=== PATIENT | male | born 1965 | race Caucasian/White ===

== ENCOUNTER 2017-01-18 17:07 | Emergency (ER) | payer BC ==
[~2017-01-18] VITALS: Ht 172.7 cm; Wt 70.3 kg
--- NOTE | ~2017-01-18 | CT4 ---
[facility] A Service of [facility] RADIOLOGY TEXT RESULTS PATIENT: VY CORDON LOCATION: [facility] : 63 UNIT #: [id number] AGE: [address]: Rojelio Gaspar DO SEX: M ORDER DR: [id number] [facility]. [place], [place] [address] [id number] E MR#: [id number] Acc #: [id number] NAME: VY CORDON : 1965 SEX: M STUDY DATE/TIME: 01/18/2017 20:38 UNIT: [facility] ROOM: STUDY DESCRIPTION: CT Abd and Pelv Wo Cont Attending Physician: Rojelio Gaspar D.O. Ordering Physician: Rojelio Gaspar D.O. Primary Care Physician: No Primary Care Physician MEDICAL IMAGING REPORT This report is preliminary unless electronic signature is present EXAM CT abdomen and pelvis without contrast HISTORY Nausea and vomiting, left lower quadrant pain and back pain for 2 days. No injury. FINDINGS CT abdomen and pelvis was performed with oral contrast and without IV contrast. This CT exam was performed with one or more of the following radiation dose reduction techniques: Automatic exposure control, adjustment of mA and/or kV according to patient size, and iterative reconstruction. CT ABDOMEN: The liver, gallbladder, spleen, pancreas, kidneys, and adrenal glands are normal. No renal calculi. No hydronephrosis. Normal caliber abdominal aorta. No bowel dilatation or ascites or inflammatory stranding. Normal appendix. CT PELVIS: No pelvic mass or fluid collection. No bowel dilatation. Urinary bladder is normal. IMPRESSION 1. No acute findings in the abdomen or pelvis. 2. No urinary calculi or obstruction. No inflammatory changes in the abdomen or pelvis. 3. Normal appendix. Dictated by... Byron Amos M.D. THIS IS AN ELECTRONICALLY VERIFIED REPORT [facility] A Service of [facility] RADIOLOGY TEXT RESULTS PATIENT: VY CORDON LOCATION: [facility] : [birth year] UNIT #: [id number] AGE: [address]: Rojelio Gaspar DO SEX: M ORDER DR: Byron Amos M.D. at 01/19/2017 6:26 PM DFL/noemi TD: 01/19/2017 03:28 JOB #: [id number] MEDICAL IMAGING REPORT Page 1 of 1 COPY
--- NOTE | ~2017-01-18 | CR72 ---
[facility] A Service of [facility] RADIOLOGY TEXT RESULTS PATIENT: VY CORDON LOCATION: [facility] : [birth year] UNIT #: [id number] AGE: [address]: Rojelio Gaspar DO SEX: M ORDER DR: [id number] [facility] [address] [place], [place] [address] [id number] E MR#: [id number] Acc #: [id number] NAME: VY CORDON : 1965 SEX: M STUDY DATE/TIME: 01/18/2017 18:59 UNIT: [facility] ROOM: STUDY DESCRIPTION: CR Chest Single View Portable Attending Physician: Rojelio Gaspar D.O. Ordering Physician: Rojelio Gaspar D.O. Primary Care Physician: No Primary Care Physician MEDICAL IMAGING REPORT This report is preliminary unless electronic signature is present EXAM Portable chest. HISTORY Cough since yesterday. FINDINGS A single AP portable view of the chest shows both lungs to be clear. The heart is normal in size. The mediastinal contour is normal. No significant bone abnormalities are seen. IMPRESSION Normal portable chest. Dictated by... Byron Amos M.D. THIS IS AN ELECTRONICALLY VERIFIED REPORT Byron Amos M.D. at 01/19/2017 6:23 PM NIDA/isaias TD: 01/19/2017 00:46 JOB #: [id number] MEDICAL IMAGING REPORT Page 1 of 1 COPY
--- NOTE | ~2017-01-18 | CT71 ---
[facility] A Service of [facility] RADIOLOGY TEXT RESULTS PATIENT: VY CORDON LOCATION: [facility] : [birth year] UNIT #: [id number] AGE: [address]: Rojelio Gaspar DO SEX: M ORDER DR: [id number] [id number] [facility]. [place], [place] [address] [id number] E MR#: [id number] Acc #: [id number] NAME: VY CORDON : 1965 SEX: M STUDY DATE/TIME: 01/18/2017 20:36 UNIT: [facility] ROOM: STUDY DESCRIPTION: CT Head Wo Contrast Attending Physician: Rojelio Gaspar D.O. Ordering Physician: Rojelio Gaspar D.O. Primary Care Physician: No Primary Care Physician MEDICAL IMAGING REPORT This report is preliminary unless electronic signature is present EXAM CT brain without contrast HISTORY Headache for 2 days. TECHNIQUE Axial noncontrast images were obtained from the skull base to the vertex. This CT exam was performed with one or more of the following radiation dose reduction techniques: Automatic exposure control, adjustment of mA and/or kV according to patient size, and iterative reconstruction. FINDINGS Ventricular size and configuration are normal. There is no evidence of acute infarct or hemorrhage. There are no extraaxial fluid collections. No mass lesion or mass effect is seen. There are no skull fractures. IMPRESSION Normal noncontrast head CT. Dictated by... Byron Amos M.D. THIS IS AN ELECTRONICALLY VERIFIED REPORT Byron Amos M.D. at 01/19/2017 6:26 PM DFL/psc TD: 01/19/2017 02:48 JOB #: [id number] MEDICAL IMAGING REPORT [facility] A Service [facility] RADIOLOGY TEXT RESULTS PATIENT: VY CORDON LOCATION: [facility] : [birth year] UNIT #: [id number] AGE: [address]: Rojelio Gaspar DO SEX: M ORDER DR: Page 1 of 1 COPY
[2017-01-18 17:39] LABS: BASOPHIL# 0.1 X10e3 (0-0.3); BASOPHIL% 1.4 % (0-2.5); DIFF IND NO; EOSINOPHIL# 0.1 X10e3 (0-0.7); EOSINOPHIL% 1.3 % (0.0-7.0); HEMATOCRIT 50.3 % (38.0-50.0); HEMOGLOBIN 17.1 gm/dL (13.0-16.0); LYMPHOCYTE# 1.4 X10e3 (1.0-3.5); LYMPHOCYTE% 20.3 % (17.0-45.0); MEAN CELL VOLUME 89.6 FL (83-96); MEAN CORPUSCULAR HEMOGLOBIN 30.4 PG (28-34); MEAN PLATELET VOLUME 7.6 FL (6.5-11.5); MONOCYTE# 1.2 X10e3 (0-1.0); MONOCYTE% 17.1 % (3.0-12.0); NEUTROPHIL# 4.2 X10e3 (1.5-7.1); NEUTROPHIL% 59.9 % (40-75); PLATELET COUNT 253 X10e3 (140-420); RED BLOOD COUNT 5.62 X10e (3.90-5.60); RED CELL DISTRIBUTION WIDTH 14.4 % (11.0-15.5)
[2017-01-18 18:00] LABS: ALBUMIN SERUM 4.3 g/dL (3.5-5.0); BILIRUBIN, DIRECT 0.1 mg/dL (0.0-0.2); BILIRUBIN,INDIRECT 0.3 mg/dL (0.0-0.9); BILIRUBIN,TOTAL 0.4 mg/dL (0.2-2.0); CALCIUM SERUM 9.3 mg/dL (8.4-10.2); CREATININE SERUM 0.9 mg/dL (0.6-1.4); GLOM FILT RATE Estimated 97.9 mL/min (>60); POTASSIUM 4.2 mmol/L (3.5-5.1); PROTEIN TOTAL SERUM 7.9 g/dL (6.0-8.3)
[2017-01-18 18:29] LABS: URINE SOURCE CLEAN CATCH
[2017-01-18 18:34] LABS: URINE APPEARANCE CLEAR; URINE BILIRUBIN NEG (NEG); URINE BLOOD 2+ (NEG); URINE COLOR YELLOW; URINE GLUCOSE NEG (NEG); URINE KETONE 1+ (NEG); URINE LEUKOCYTE ESTERASE NEG (NEG); URINE NITRATE NEG (NEG); URINE PROTEIN TRACE (NEG); URINE SPECIFIC GRAVITY 1.024 (1.003-1.035)
[2017-01-18 18:36] LABS: URBCS1 AUWI 50-100 /[HPF] (0-2); URINE BACTERIA AUWI NEG (NEGATIVE); URINE SQUAMOUS EPITHELIAL CELL NONE SEEN /[HPF]
[2017-01-18 18:49] LABS: CULTURE INDICATED? NO
[2017-01-18 21:40] LABS: POC - CKMB <1.0 ng/mL (0.0-7.9); POC - TROPONIN <0.05 ng/mL (<=0.05)
[2017-01-19 00:43] LABS: PARTIAL THROMBOPLASTIN TIME 32.6 SECONDS (23.5-31.3); PROTHROMBIN TIME (PATIENT) 11.2 SECONDS (10.0-11.7)
[2017-01-19 01:36] LABS: GLUCOSE-CSF 54 mg/dL (50-80); PROTEIN-CSF 42 mg/dL (15-45)
[2017-01-19 01:47] LABS: CSF APPEARANCE CLEAR (CLEAR); CSF RBC 0 CMM (0); CSF TUBE NUMBER 4; CSF WBC 0 CMM (0-8); CSF XANTHACHROMIC NO
[2017-01-19 01:48] LABS: CSF APPEARANCE CLEAR (CLEAR); CSF RBC 0 CMM (0); CSF TUBE NUMBER 1; CSF WBC 0 CMM (0-8); CSF XANTHACHROMIC NO
== END 2017-01-19 03:16 | disposition home or self-care (01) ==
LOC: CED 17:07
PROVIDERS: Emergency Medicine
DX: R51 Headache (principal); R10.9 Unspecified abdominal pain; F17.210 Nicotine dependence, cigarettes, uncomplicated; Z91.041 Radiographic dye allergy status
CPT/HCPCS: 36415; 62270; 70450; 71010; 74176; 80048; 80076; 81003; 82553; 82945; 83690; 84157; 84484; 85025; 85610; 85730; 87070; 87205; 89051; 96361; 96374; 96375; 96376; 99285; J1885; J2270; J2405